=== PATIENT | female | born 1945 | race Caucasian/White ===

== ENCOUNTER 2024-10-09 12:11 | Outpatient (CLI) | payer MEDICARE, OTHER | END 2024-10-09 12:12 | disposition home or self-care (01) | LOC: CT 12:11 | PROVIDERS: ATTEND Orthopaedic Surgery | DX: M94.262 Chondromalacia, left knee (principal); M17.12 Unilateral primary osteoarthritis, left knee; M89.8X7 Other specified disorders of bone, ankle and foot; Z01.818 Encounter for other preprocedural examination | CPT/HCPCS: 71046; 80048; 81001; 85025; 85610; 87081; 93005; 93010 ==